=== PATIENT | female | born 1960 | race Caucasian/White ===

== ENCOUNTER 2016-11-13 08:57 | Emergency (ER) | payer OTHER, BC ==
[~2016-11-13] VITALS: Ht 175.3 cm; Wt 104.3 kg
--- NOTE | 2016-11-13 09:37 | Diagnostic Imaging Report ---
EXAMINATION: Three views of the left shoulder. INDICATION: Fall. FINDINGS: There is a comminuted fracture with minimal displacement seen in the proximal left humerus involving the anatomic neck with an oblique fracture line and a vertical fracture line through the base of the greater tuberosity with very minimal displacement. The glenohumeral joint demonstrates good alignment. The acromioclavicular joint demonstrates osteoarthritic changes with inferior osteophyte formation of the acromial end. No radiopaque foreign body. IMPRESSION: Mildly comminuted fracture of the proximal left humerus with minimal displacement of the greater tuberosity. The findings were discussed with Dr. Clemente at the time of dictation. Dictated by: Dictated on workstation # [id number]
[2016-11-13] MEDS ORDERED: fentaNYL INJECTION 100 MCG/2 ML AMP IM ONE (09:45)
[2016-11-13] MEDS ORDERED: HYDR-3731 PO (10:30)
--- NOTE | 2016-11-13 10:30 | ED Upper Extremity ---
General Chief Complaint: Upper Extremity Stated Complaint: DISLOCATED ARM Nursing Triage Note: c/o left shoulder pain. Pt fell at work. Minimal ROM. Nursing Sepsis Screen: No Definite Risk Source: patient History of Present Illness Time seen by provider: 10:21 Initial Comments The patient is a 56-year-old white female who presents to the emergency room with a chief complaint of A fall and subsequent severe pain in her left shoulder. Onset: just prior to arrival Pain/Injury Location: left shoulder Method of Injury: fell Allergies and Home Medications Allergies Coded Allergies: No Known Drug Allergies (Unverified , 09/13/10) Constitutional: see HPI EENTM: no symptoms reported Respiratory: no symptoms reported Cardiovascular: no symptoms reported Gastrointestinal: no symptoms reported Musculoskeletal: see HPI Skin: no symptoms reported Psychiatric/Neurological: No Symptoms Reported Past Htothhs-Wyulsd-Jfzibm Hx Patient Social History Alcohol Use: Denies Use Recreational Drug Use: No Smoking Status: Never a Smoker Recent Foreign Travel: No Contact w/Someone Who Travel: No Recent Infectious Disease Expo: No Physical Exam Vital Signs Vital Sign - Last 12Hours 11/13/16 09:15 Temp 97.5 Pulse 82 Resp 16 B/P (MAP) 158/100 Pulse Ox 98 Capillary Refill : Less Than 3 Seconds General Appearance: moderate distress HEENT: normal ENT inspection Neck: full range of motion Cardiovascular: normal peripheral pulses, regular rate, rhythm, no edema, no gallop, no JVD, no murmur Respiratory: chest non-tender, lungs clear, normal breath sounds, no respiratory distress, no accessory muscle use Gastrointestinal: normal bowel sounds, non tender, soft, no organomegaly, no pulsatile mass, abnormal bowel sounds Back: normal inspection, no CVA tenderness, no vertebral tenderness, CVA tenderness (R), CVA tenderness (L) Shoulder: swelling Neurologic/Psychiatric: nursing services manager II-XII nml as tested Progress/Results/Core Measures Results/Orders My Orders Orders - YAYA MEADE MD Shoulder, Left, 3 Views (11/13/16 09:14) Fentanyl Injection (Sublimaze Injection (11/13/16 09:45) Medications Given in ED Current Medications Medications Dose Ordered Sig/Genoveva Route Start Time Stop Time Status Last Admin Dose Admin Fentanyl Citrate 50 mcg ONCE ONCE IM 11/13/16 09:45 11/13/16 09:46 DC 5/11/17 09:56 50 MCG Vital Signs/I&O Vital Sign - Last 12Hours 11/13/16 11/13/16 09:15 09:56 Temp 97.5 98.3 Pulse 82 Resp 16 B/P (MAP) 158/100 Pulse Ox 98 Blood Pressure Mean: 119 Departure Communication Progress Notes X-ray shows a fracture across the surgical neck of the humerus. In addition there appears to be a more vertically oriented fracture line with a large fragment. These all appear to be in good position at this point in time. Impression Impression: Primary Impression: left humeral neck fracture Disposition: HOME, SELF-CARE Condition: Improved Departure-Patient Inst. Decision time for Depature: 10:29 Referrals: SALVADOR VELASCO DO (PCP) Primary Care Physician Patient Instructions: How to Use a Shoulder Sling Add. Discharge Instructions: All discharge instructions reviewed with patient and/or family. Voiced understanding. Use sling as directed. Hydrocodone as necessary for pain control. Appointment at [facility] [address] on Friday 11/17@1300. Scripts Hydrocodone/Acetaminophen (Lortab 10-325 mg Tablet) 1 Each Tablet 1 EACH PO EVERY 4 HOURS for 25 Days, TAB Prov: YAYA MEADE MD 11/13/16 YAYA MEADE MD November 13, 2016 10:30
[2016-11-13 10:45] VITALS: BP 142/90
[2016-11-13] MEDS ORDERED: fentaNYL INJECTION 100 MCG/2 ML AMP ONE (15:24)
== END 2016-11-13 10:45 | disposition home or self-care (01) ==
LOC: EDUNIT# 08:57 → ER 09:01
DX: S42.352A Displaced comminuted fracture of shaft of humerus, left arm, initial encounter for closed fracture (principal); W19.XXXA Unspecified fall, initial encounter; Y99.8 Other external cause status
CPT/HCPCS: 73030; 96372; 99283

== ENCOUNTER → 2017-05-27 | Outpatient (CLI) | payer BC, OTHER ==
[~2017-05-27] MED LIST: HYDR-3731 PO
--- NOTE | 2017-05-27 18:41 | Diagnostic Imaging Report ---
PROCEDURE: US Gallbladder. TECHNIQUE: Multiple real-time grayscale images were obtained over the right upper quadrant in various projections. INDICATION: Abdominal pain. Right upper quadrant pain. FINDINGS: The pancreas visualized portions appear unremarkable. The liver is fairly homogeneous with no focal lesion seen. It is, however, mildly enlarged measuring 19 cm in craniocaudal dimension. There is hepatopetal flow in the portal vein. The CBD is 5 mm in caliber. The gallbladder demonstrates no stones or wall thickening. No pericholecystic fluid. Sonographic Cope's sign is reportedly negative. The right kidney is 12.8 cm in length with no hydronephrosis or focal lesion. No fluid collection in the upper right abdomen. IMPRESSION: Mild hepatomegaly. Dictated on workstation # [id number]
== END ==
LOC: RAD 09:42
PROVIDERS: ATTEND Nurse Practitioner Family
DX: R16.0 Hepatomegaly, not elsewhere classified (principal)
CPT/HCPCS: 76705

== ENCOUNTER → 2017-06-04 | Outpatient (CLI) | payer BC, OTHER ==
[~2017-06-04] MED LIST changes: +CATHETER FLUSH 10 ML SYR IV PRN
--- NOTE | 2017-06-04 15:01 | Diagnostic Imaging Report ---
EXAMINATION: HIDA with EF measurements Indication: Abdominal pain TECHNIQUE: After the intravenous administration of 5.3 mCi of Tc 99m Choletec, imaging over the abdomen was obtained. This was followed by administration of Ensure orally to stimulate intrinsic CCK secretion, followed by continued imaging with ejection fraction measured. FINDINGS: There is homogeneous uptake in the liver with prompt bile duct and gallbladder filling seen. Bowel activity is seen at 20 minutes. Based on further imaging and gallbladder area of interest activity measurements after the administration of Ensure, the gallbladder ejection fraction is estimated at 71%. IMPRESSION: 1. Normal hepatobiliary uptake and Gallbladder filling. 2. Normal gallbladder ejection fraction. Dictated by: Dictated on workstation # [id number]
== END ==
LOC: CARD 11:55
PROVIDERS: ATTEND Nurse Practitioner Family
DX: R10.11 Right upper quadrant pain (principal)
CPT/HCPCS: 78227

== ENCOUNTER → 2019-10-21 | Outpatient (CLI) | payer BC ==
[~2019-10-21] MED LIST changes: -CATHETER FLUSH 10 ML SYR IV PRN
--- NOTE | 2019-10-21 10:56 | Diagnostic Imaging Report ---
PROCEDURE: US right lower extremity venous. TECHNIQUE: Multiple real-time grayscale images were obtained over the right lower extremity in various projections. Additional spectral analysis and color Doppler duplex images were also obtained. INDICATION: Right calf swelling. Comparison: Non available. Findings: The right common femoral, femoral and popliteal veins are patent by color doppler imaging and without DVT. Visualized proximal aspects of the greater saphenous, deep femoral, posterior tibial and peroneal veins are also patent. All of the evaluated deep venous structures demonstrate normal compressibility and waveform augmentation where applicable. There is expansile occlusive thrombus within the superficial lesser saphenous vein. Impression: 1. No right lower extremity deep venous thrombosis (DVT). 2. Superficial venous thrombosis of the lesser saphenous vein Dictated by: Dictated on workstation # [id number]
== END ==
LOC: RAD 09:42
PROVIDERS: ATTEND Family Medicine
DX: I82.811 Embolism and thrombosis of superficial veins of right lower extremity (principal); Z86.718 Personal history of other venous thrombosis and embolism

== ENCOUNTER → 2020-02-03 | Outpatient (CLI) | payer BC ==
--- NOTE | 2020-02-03 14:07 | Diagnostic Imaging Report ---
INDICATION: Right lower extremity superficial thrombosis TECHNIQUE: Multiple real-time grayscale images were obtained over the right lower extremity in various projections, bilaterally. Additional duplex Doppler and color Doppler images were also obtained. CORRELATION STUDY: 10/21/2019 FINDINGS: Color and grayscale sonographic images demonstrate no intraluminal defect within the visualized portion of the common femoral, superficial femoral and/or popliteal veins to suggest thrombus formation. These vessels demonstrate normal response to compression and augmentation. The previous noted superficial thrombus within the lesser saphenous vein in the right leg appears to have resolved. There is a complex fluid collection right popliteal fossa, measures approximately 4.8 x 2.1 x 1.6 cm. IMPRESSION: 1. Negative for deep venous thrombosis of the right leg. 2. Appreciated superficial thrombosis of the right lesser saphenous vein appears to have resolved. 3. Complex fluid collection popliteal fossa at approximately 5 cm in size, is nonspecific. Possibly this represents a complex samayoa cyst not excluded. Given the overall complex appearance, consideration for perhaps MRI would be recommended. Clinical correlation recommended. Dictated by: Dictated on workstation # [id number]
== END ==
LOC: RAD 13:30
PROVIDERS: ATTEND Family Medicine
DX: I82.811 Embolism and thrombosis of superficial veins of right lower extremity (principal)

== ENCOUNTER → 2020-02-24 | Outpatient (CLI) | payer BC ==
--- NOTE | 2020-02-24 10:13 | Diagnostic Imaging Report ---
PROCEDURE: MRI right joint lower extremity without contrast. TECHNIQUE: Multiplanar, multisequence non contrast-enhanced MRI of the right lower extremity was accomplished. INDICATION: Popliteal mass. COMPARISON: Doppler ultrasound from 02/03/2020. FINDINGS: Status post total knee arthroplasty and patellar resurfacing. There is moderate signal void and susceptibility artifact associated with the metallic components of the prosthesis which limits assessment of the immediately surrounding structures. Allowing for this, there is a small knee joint effusion. Additionally, there is a popliteal cyst extending between the medial head of gastrocnemius and distal semimembranosus. This measures 4.3 cm in greatest dimension and 3.6 x 1.9 cm (AP by transverse). By non-contrast imaging, there is no solid component associated with this although there are a few internal septations indicative of a mildly complicated Lara's cyst. No osseous erosions are seen within the visualized aspects of the distal femur, tibia, fibula and patella. PCL sparing prosthesis has been utilized and the PCL is intact. Collateral ligaments are not well seen due to artifact. All of the biceps femoris is intact. IMPRESSION: 1. Mildly complicated Lara's cyst measures 3.6 x 1.9 x 4.3 cm and corresponds to the ultrasound abnormality. Dictated by: Dictated on workstation # [id number]
== END ==
LOC: RAD 08:00
PROVIDERS: ATTEND Family Medicine
DX: M71.21 Synovial cyst of popliteal space [Baker], right knee (principal); Z96.659 Presence of unspecified artificial knee joint
CPT/HCPCS: 73721

== ENCOUNTER → 2021-11-15 | Outpatient (CLI) | payer BC ==
--- NOTE | 2021-11-15 17:54 | Diagnostic Imaging Report ---
PROCEDURE: US hepatic (liver). TECHNIQUE: Multiple real-time grayscale images were obtained over the right upper quadrant in various projections. INDICATION: Elevated liver enzymes. COMPARISON: 05/27/2017. FINDINGS: Liver is slightly prominent in size, as it measures 19.1 cm in length. Hepatic echotexture is within normal limits. There are no focal lesions. No intra or extrahepatic biliary dilatation is present. The common bile duct is not dilated and measures 5 mm. There is no evidence of cholelithiasis, gallbladder wall thickening or pericholecystic fluid. The visualized portions of the head and proximal body of the pancreas are within normal limits. The distal body and tail of the pancreas are not visualized due to overlying bowel gas. There is no ascites. The right kidney measures approximately 12.2 cm in length. Rounded hypoechoic area is identified centrally within the left kidney and may be on the basis of peripelvic cyst versus pelviectasis there is no calyceal dilatation. The visualized portions of the IVC and aorta are normal. IMPRESSION: 1. Borderline hepatomegaly. Otherwise, unremarkable sonographic appearance to the liver. 2. Possible prominent right renal pelvis versus peripelvic cyst. If further evaluation is indicated, pre and post contrast CT of the abdomen may be of benefit. Dictated by: Dictated on workstation # [id number]
== END ==
LOC: RAD 14:00
PROVIDERS: ATTEND Family Medicine
DX: R94.5 Abnormal results of liver function studies (principal)
CPT/HCPCS: 76705

== ENCOUNTER → 2022-12-04 | Outpatient (CLI) | payer BC ==
--- NOTE | 2022-12-05 10:19 | Diagnostic Imaging Report ---
INDICATION: Routine screening. ComPARISON is made with prior mammograms 05/09/2020 and 08/18/2014. 2-D and 3-D bilateral screening mammography was performed with CAD. Scattered fibroglandular densities are identified bilaterally. There are scattered benign calcifications. Overall parenchymal pattern is stable. No mass or malignant-appearing microcalcifications are identified. Axillae are unremarkable. IMPRESSION: BI-RADS Category 2 No mammographic features suspicious for malignancy are identified. ACR BI-RADS Category 2: Benign findings. Result letter will be mailed to the patient. Note: At least 10% of breast cancer is not imaged by mammography. Dictated by: Dictated on workstation # [id number]
== END ==
LOC: RAD 15:00
PROVIDERS: ATTEND Family Medicine
DX: Z12.31 Encounter for screening mammogram for malignant neoplasm of breast (principal)
CPT/HCPCS: 77063; 77067